=== PATIENT | male | born 1960 | race Caucasian/White ===

== ENCOUNTER 2016-05-24 23:41 | Emergency (ER) | payer BC ==
[2016-05-24 23:58] LABS: URINE APPEARANCE CLEAR; URINE BILIRUBIN NEGATIVE (NEGATIVE); URINE BLOOD TRACE-I (NEGATIVE); URINE COLOR YELLOW; URINE GLUCOSE (UA) NEGATIVE (NEGATIVE); URINE KETONE NEGATIVE (NEGATIVE); URINE LEUKOCYTE ESTERASE NEGATIVE (NEGATIVE); URINE NITRITE NEGATIVE (NEGATIVE); URINE PROTEIN NEGATIVE (NEGATIVE); URINE UROBILINOGEN 0.2 E.U./dL (0.20 - 1.00)
[2016-05-25] MEDS ORDERED: ONDANSETRON HCL IV 4 MG/2 ML VIAL IVP ONE (00:01)
[2016-05-25] MEDS ORDERED: KETOROLAC 30 MG/ML VIAL IVP ONE (00:01)
[2016-05-25 00:09] LABS: HEMATOCRIT 43.7 % (42.0-52.0); MEAN CELL VOLUME 86.5 fl (81-97); MEAN CORPUSCULAR HEMOGLOBIN 29.7 pg (27-33); MEAN CORPUSCULAR HGB CONC 34.3 g/dl (32-36); MEAN PLATELET VOLUME 10.3 fl (7.4-10.4); PLATELET COUNT 260 K/uL (130-400); RED BLOOD COUNT 5.05 M/uL (4.40-5.70); RED CELL DISTRIBUTION WIDTH 12.9 % (11.5-14.5); WHITE BLOOD COUNT W/O DIFF 9.6 K/uL (4.2-12.2)
--- NOTE | 2016-05-25 00:10 | Emergency Department Record ---
History of Present Illness - General Chief complaint: Flank Pain Stated complaint: KIDNEY STONE Time Seen by Provider: 05/24/16 23:48 Source: Patient Mode of Arrival: Ambulatory Limitations: No limitations - History of Present Illness Initial comments: 55 yo male presents to ED with a 3-hour history of left sided flank pain. Patient reports a history of kidney stones, although has not experienced one in several years. Patient denies fevers, chills, or dysuria symptoms. Patient does report nausea and vomiting x 1. Patient denies health problems other than HTN. MD Complaint: Other (flank pain) Onset/Timin -: Hour(s) Location: Left flank Radiation: None Severity scale (1-10): 5 Quality: Aching Consistency: Constant Improves with: None Worsens with: None Reports: Nausea/vomiting - Related Data Home Medications Medication Instructions Recorded Confirmed Last Taken Amlodipine/Valsartan/Hcthiazid 1 tab PO DAILY 05/24/16 05/24/16 05/24/16 [Xukgc-Cxswe-Iubz 10-320-25 mg] Omeprazole/Sodium Bicarbonate 1 cap PO DAILY 05/24/16 05/24/16 05/24/16 [Omeprazole-Bicarb 40-1,100 Cap] Previous Rx's Medication Instructions Recorded Hydrocodone/Acetaminophen [Erhard 1 tab PO Q6H PRN #10 tab 05/25/16 5mg/325mg] Tamsulosin HCl [Flomax] 0.4 mg PO DAILY #15 cap.er.24h 05/25/16 Allergies Allergy/AdvReac Type Severity Reaction Status Date / Time No Known Drug Allergies Allergy Verified 05/25/14 17:50 Travel Screening - Travel/Exposure Within Last 30 Days Have you traveled within the last 30 days?: No - Travel Symptoms Symptom Screening: None Review of Systems Constitutional: Denies: Chills, Fever, Malaise, Night sweats Eyes: Denies: Eye discharge, Eye pain ENT: Denies: Congestion, Ear pain Respiratory: Denies: Cough, Dyspnea Cardiovascular: Denies: Chest pain, Dyspnea on exertion Endocrine: Denies: Fatigue, Heat or cold intolerance Gastrointestinal: Reports: Nausea, Vomiting. Denies: Abdominal pain Genitourinary: Denies: Incontinence, Retention, Testicular pain Musculoskeletal: Reports: Back pain. Denies: Arthralgia, Gout, Joint swelling Skin: Denies: Bruising, Change in color, Change in hair/nails Neurological: Denies: Abnormal gait, Confusion, Headache, Seizure Psychiatric: Denies: Anxiety Hematological/Lymphatic: Denies: Anemia, Blood Clots Past Medical History - SOCIAL HISTORY Smoking Status: Never smoker - RESPIRATORY Hx Respiratory Disorders: No - CARDIOVASCULAR Hx Cardio Disorders: Yes Hx Hypertension: Yes - NEURO Hx Neuro Disorders: No - GI Hx GI Disorders: Yes Hx Reflux: Yes - Hx Genitourinary Disorders: Yes Hx Kidney Stones: Yes - ENDOCRINE Hx Endocrine Disorders: No - MUSCULOSKELETAL Hx Musculoskeletal Disorders: No - PSYCH Hx Psych Problems: No - HEMATOLOGY/ONCOLOGY Hx Hematology/Oncology Disorders: No Family Medical History Any Significant Family History?: Yes Hx Cancer: Father, Mother Hx Heart Disease: Father Physical Exam - General General Appearance: Alert, Oriented x3, Cooperative, Moderate distress Limitations: No limitations - Head Head exam: Atraumatic, Normocephalic, Normal inspection Head exam detail: negative: Abrasion, Contusion, Cota's sign, General tenderness, Hematoma, Laceration - Eye Eye exam: Normal appearance. negative: Conjunctival injection, Periorbital swelling, Periorbital tenderness, Scleral icterus - ENT Ear exam: negative: Auricular hematoma, Auricular trauma Nasal Exam: negative: Active bleeding, Discharge, Dried blood, Foreign body Mouth exam: negative: Drooling, Laceration, Muffled voice, Tongue elevation - Neck Neck exam: Normal inspection. negative: Meningismus, Tenderness - Respiratory Respiratory exam: Normal lung sounds bilaterally. negative: Rales, Respiratory distress, Rhonchi, Stridor - Cardiovascular Cardiovascular Exam: Regular rate, Normal rhythm, Normal heart sounds - GI/Abdominal GI/Abdominal exam: Soft. negative: Rebound, Rigid, Tenderness - Rectal Rectal exam: Deferred - exam: Deferred - Extremities Extremities exam: Normal inspection. negative: Calf tenderness, Pedal edema, Tenderness - Back Back exam: Reports: CVA tenderness (L). Denies: CVA tenderness (R) - Neurological Neurological exam: Alert, Normal gait, Oriented X3 - Psychiatric Psychiatric exam: Normal affect, Normal mood - Skin Skin exam: Normal color. negative: Abrasion Type of lesion: negative: abrasion Course Vital Signs 05/24/16 23:46 Temperature 97.5 F L Pulse Rate 88 Respiratory 20 Rate Blood Pressure 148/92 Pulse Ox 94 L - Reevaluation(s) Reevaluation #1: 05/25/16 00:31 Labs reviewed, BUN 21, Creatinine 1.3, Trace blood urine. Labs are otherwise grossly unremarkable for an acute process. CT Abdomen and Pelvis: 4 mm calculus left UVJ, no significant hydronephrosis. Reevaluation #2: 05/25/16 00:44 Patient updated on all results, reports that he is feeling much better and appears stable for discharge at this time. Will have the patient f/u with Dr. Flores in the [facility] clinic on Wednesday. Medical Decision Making - Lab Data Result diagrams: 05/25/16 00:00 05/25/16 00:00 Lab Results 05/24/16 Range/Units 23:48 Urine Color Yellow Urine Appearance Clear Urine pH 6.0 (5.0-8.0) Ur Specific Byron 1.025 (1.002-1.030) Urine Protein Negative (NEGATIVE) Urine Glucose (UA) Negative (NEGATIVE) Urine Ketones Negative (NEGATIVE) Urine Blood Trace-i (NEGATIVE) Urine Nitrite Negative (NEGATIVE) Urine Bilirubin Negative (NEGATIVE) Urine Urobilinogen 0.2 (0.20 - 1.00) E.U./dL Ur Leukocyte Esterase Negative (NEGATIVE) Disposition Disposition: Discharge Clinical Impression: Kidney stone on left side Disposition: Home, Self-Care Condition: (2) Stable Instructions: Flank Pain (ED) Additional Instructions: Return to ED if your symptoms worsen or if you have any concerns. Flomax and Erhard as directed. Follow-up with Dr. Flores in 2 days as directed. Prescriptions: Tamsulosin HCl [Flomax] 0.4 mg PO DAILY #15 cap.er.24h Hydrocodone/Acetaminophen [Erhard 5mg/325mg] 1 tab PO Q6H PRN #10 tab PRN Reason: Pain - General Referrals: PREETI THAO M.D. [MEDICAL DOCTOR] - [facility] Special[facility] [Provider Group] Forms: Patient Portal Access Time of Disposition: 00:16
[2016-05-25 00:12] LABS: URINE BACTERIA NONE SEEN; URINE EPITHELIAL CELLS 0 - 2 (FEW); URINE RBC 0 - 2 (NONE SEEN); URINE WBC 0 - 2 (0-2/hpf)
[2016-05-25] MEDS ORDERED: 0.9 % SODIUM CHLORIDE 1000ML 1,000 ML IV ONE (00:18)
[2016-05-25 00:21] LABS: ALB/GLOB RATIO 1.4 (1.1-1.8); ALBUMIN 4.6 gm/dL (3.5-5.0); ALKALINE PHOSPHATASE 131 U/L (38-126); ALT/SGPT 61 U/L (21-72); ANION GAP 12.4 (7-16); AST/SGOT 40 U/L (17-59); BILIRUBIN,TOTAL 0.53 mg/dL (0.2-1.3); BLOOD UREA NITROGEN 21 mg/dL (9-20); CARBON DIOXIDE 24.6 mmol/L (22-30); CREATININE 1.3 mg/dL (0.66-1.25); EST GLOMERULAR FILTRATION RATE > 60 ml/min; GLUCOSE,RANDOM 193 mg/dL (70-110); TOTAL PROTEIN 7.9 gm/dL (6.3-8.2)
== END 2016-05-25 01:01 | disposition home or self-care (01) ==
LOC: ER 23:41
DX: N20.1 Calculus of ureter (principal); R11.2 Nausea with vomiting, unspecified; I10 Essential (primary) hypertension; Z87.442 Personal history of urinary calculi
CPT/HCPCS: 74176; 80053; 81001; 85027; 96361; 96374; 96375; 99284; J1885; J2405; J7030

== ENCOUNTER 2016-07-03 10:18 | Emergency (ER) | payer BC, OTHER ==
--- NOTE | 2016-07-03 11:01 | Emergency Department Record ---
History of Present Illness - General Chief Complaint: Ankle/Foot Injury Stated Complaint: LEFT ANKLE INJ Time Seen by Provider: 07/03/16 10:49 Mode of Arrival: Ambulatory - History of Present Illness Initial Comments: fell 3 feet through a bleacher with an injury of the left ankle and left foot. No other injuries Onset/Timin -: Hour(s) Type of Injury: Other Place: Work Severity: Severe Severity scale (1-10): 8 Improves With: Nothing Worsens With: Weight bearing Context: Other Associated Symptoms: Swelling, Able to partially bear weight - Related Data Home Medications Medication Instructions Recorded Confirmed Last Taken Amlodipine/Valsartan/Hcthiazid 1 tab PO DAILY 05/24/16 07/03/16 07/03/16 [Askwu-Xisga-Elja 10-320-25 mg] Omeprazole/Sodium Bicarbonate 1 cap PO DAILY 05/24/16 07/03/16 07/03/16 [Omeprazole-Bicarb 40-1,100 Cap] Previous Rx's Medication Instructions Recorded Hydrocodone/Acetaminophen [[place] 1 each PO Q6HR #10 tablet 07/03/16 5-325 Tablet] Ibuprofen [Motrin 600Mg] 600 mg PO Q6H #30 tablet 07/03/16 Allergies Allergy/AdvReac Type Severity Reaction Status Date / Time No Known Drug Allergies Allergy Verified 05/25/14 17:50 Travel Screening - Travel/Exposure Within Last 30 Days Have you traveled within the last 30 days?: No - Travel/Exposure Within Last Year Have you traveled outside the [place] in the last year?: No - Additonal Travel Details Have you been exposed to anyone with a communicable illness?: No - Travel Symptoms Symptom Screening: None Review of Systems Reviewed: No additional complaints except as noted below Constitutional: Reports: As per HPI. Denies: Chills, Fever, Malaise, Night sweats, Weakness, Weight change Eyes: Reports: As per HPI. Denies: Eye discharge, Eye pain, Photophobia, Vision change ENT: Reports: As per HPI. Denies: Congestion, Dental pain, Ear pain, Epistaxis , Hearing loss, Throat pain Respiratory: Reports: As per HPI. Denies: Cough, Dyspnea, Hemoptysis, Stridor, Wheezes Cardiovascular: Reports: As per HPI. Denies: Arrhythmia, Chest pain, Dyspnea on exertion, Edema, Murmurs, Orthopnea, Palpitations, Paroxysmal nocturnal dyspnea, Rheumatic Fever, Syncope Endocrine: Reports: As per HPI. Denies: Fatigue, Heat or cold intolerance, Polydipsia, Polyuria Gastrointestinal: Reports: As per HPI. Denies: Abdominal pain, Constipation, Diarrhea, Hematemesis, Hematochezia, Melena, Nausea, Vomiting Genitourinary: Reports: As per HPI. Denies: Dysuria, Frequency, Hematuria, Incontinence, Retention, Testicular pain, Testicular mass, Urgency Musculoskeletal: Reports: As per HPI, Other (swollen and pain in the lateral ankle and foot.). Denies: Arthralgia, Back pain, Gout, Joint swelling, Myalgia , Neck pain Skin: Reports: As per HPI. Denies: Bruising, Change in color, Change in hair/ nails, Lesions, Pruritus, Rash Neurological: Reports: As per HPI. Denies: Abnormal gait, Confusion, Headache, Numbness, Paresthesias, Seizure, Tingling, Tremors, Vertigo, Weakness Psychiatric: Reports: As per HPI. Denies: Anxiety, Auditory hallucinations, Depression, Homicidal thoughts, Suicidal thoughts, Visual hallucinations Hematological/Lymphatic: Reports: As per HPI. Denies: Anemia, Blood Clots, Easy bleeding, Easy bruising, Swollen glands Past Medical History - SOCIAL HISTORY Smoking Status: Never smoker Alcohol Use: Occassional Drug Use: None - RESPIRATORY Hx Respiratory Disorders: No - CARDIOVASCULAR Hx Cardio Disorders: Yes Hx Hypertension: Yes - NEURO Hx Neuro Disorders: No - GI Hx GI Disorders: Yes Hx Reflux: Yes - Hx Genitourinary Disorders: Yes Hx Kidney Stones: Yes - ENDOCRINE Hx Endocrine Disorders: No - MUSCULOSKELETAL Hx Musculoskeletal Disorders: No - PSYCH Hx Psych Problems: No - HEMATOLOGY/ONCOLOGY Hx Hematology/Oncology Disorders: No Family Medical History Any Significant Family History?: Yes Hx Cancer: Father, Mother Hx Heart Disease: Father Physical Exam - General General Appearance: Alert, Oriented x3, Cooperative, No acute distress - Head Head exam: Normal inspection - Eye Eye exam: Normal appearance, PERRL Pupils: Normal accommodation - ENT ENT exam: Normal exam, Mucous membranes moist, Normal external ear exam, Normal orophraynx, TM's normal bilaterally Ear exam: Normal external inspection. negative: External canal tenderness Nasal Exam: Normal inspection. negative: Discharge, Sinus tenderness Mouth exam: Normal external inspection, Tongue normal Teeth exam: Normal inspection. negative: Dental caries Throat exam: Normal inspection. negative: Tonsillar erythema, Tonsillar exudate - Neck Neck exam: Normal inspection, Full ROM. negative: Tenderness - Respiratory Respiratory exam: Normal lung sounds bilaterally. negative: Respiratory distress - Cardiovascular Cardiovascular Exam: Regular rate, Normal rhythm, Normal heart sounds - GI/Abdominal GI/Abdominal exam: Soft, Normal bowel sounds. negative: Tenderness - Rectal Rectal exam: Deferred - exam: Deferred - Extremities Extremities exam: Normal inspection, Full ROM, Normal capillary refill, Tenderness (left ankle pain, neurovascular intact.) - Back Back exam: Reports: Normal inspection, Full ROM. Denies: Muscle spasm, Rash noted, Tenderness - Neurological Neurological exam: Alert, Normal gait, Oriented X3, Reflexes normal - Psychiatric Psychiatric exam: Normal affect, Normal mood - Skin Skin exam: Dry, Intact, Normal color, Warm Course Vital Signs 07/03/16 10:22 Temperature 98 F Pulse Rate 87 Respiratory 16 Rate Blood Pressure 141/94 Pulse Ox 97 Medical Decision Making - Data Complexity MDM Data: X-Ray Ordered and/or Reviewed (neg foot and ankle fracture) Disposition Clinical Impression: Ankle sprain Qualifiers: Encounter type: initial encounter Involved ligament of ankle: tibiofibular ligament Laterality: left Qualified Code(s): S93.432A - Sprain of tibiofibular ligament of left ankle, initial encounter Disposition: Home, Self-Care Condition: (1) Good Instructions: Ankle Sprain (ED) Additional Instructions: follow up with Dr. lucero in 4 days. crutches Prescriptions: Hydrocodone/Acetaminophen [Aledo 5-325 Tablet] 1 each PO Q6HR #10 tablet Ibuprofen [Motrin 600Mg] 600 mg PO Q6H #30 tablet Forms: Patient Portal Access Time of Disposition: 12:19
--- NOTE | 2016-07-08 16:29 | RADIOLOGY REPORT ---
EXAM: ANKLE LEFT 3 VIEWS HISTORY: PATIENT FELL WITH LATERAL ANKLE PAIN ON THE LEFT. TECHNIQUE: Three views, left ankle. COMPARISON: No prior left ankle series. ENCOUNTER: Initial. FINDINGS: There is mild soft tissue swelling particularly medially. There is a faint small calcific density about 3.6 mm in size adjacent to the medial malleolus. This appears smoothly marginated and is likely a chronic density, either developmental or due to old injury but does not appear acute. Allowing for this, no definite acute fracture of the left ankle seen and no dislocation evident. IMPRESSION: 1. MILD SOFT TISSUE SWELLING. 2. SMALL CHRONIC-APPEARING CALCIFIC DENSITY ADJACENT TO THE MEDIAL MALLEOLUS. NO DEFINITE ACUTE FRACTURE OF THE LEFT ANKLE IDENTIFIED. JOB NUMBER: [id number] MTDD
--- NOTE | 2016-07-08 16:32 | RADIOLOGY REPORT ---
EXAM: FOOT, LEFT 3 VIEWS HISTORY: PATIENT FELL WITH LEFT LATERAL FOOT PAIN. TECHNIQUE: Three views, left foot. COMPARISON: No prior left foot series. ENCOUNTER: Initial. FINDINGS: Mild degenerative change at the first MTP joint. There is slight flattening at the head of the second metatarsal, which appears chronic in nature. No definite acute fracture of the left foot identified and no dislocation apparent. Very small posterior calcaneal spur. IMPRESSION: 1. DEGENERATIVE ARTHRITIS AT THE FIRST MTP JOINT. 2. MILD FLATTENING AT THE HEAD OF THE SECOND METATARSAL APPEARS CHRONIC. 3. SMALL POSTERIOR CALCANEAL SPUR. 4. NO DEFINITE ACUTE FRACTURE OF THE LEFT FOOT IDENTIFIED. JOB NUMBER: [id number] MTDD
== END 2016-07-03 12:42 | disposition home or self-care (01) ==
LOC: ER 10:18
DX: S93.432A Sprain of tibiofibular ligament of left ankle, initial encounter (principal); W17.89XA Other fall from one level to another, initial encounter; Y92.39 Other specified sports and athletic area as the place of occurrence of the external cause; Y99.0 Civilian activity done for income or pay
CPT/HCPCS: 99283; 99284

== ENCOUNTER 2016-09-05 13:32 | Emergency (ER) | payer BC, OTHER ==
--- NOTE | 2016-09-05 15:23 | Emergency Department Record ---
History of Present Illness - General Chief complaint: ENT Stated complaint: LT EAR PAIN/LT JAW SWELLING Time Seen by Provider: 09/05/16 15:17 Source: Patient Mode of Arrival: Ambulatory - History of Present Illness Initial comments: 3 days of ear pain. He has been swimming in his backyard pool. No f,c,cough, sob , cp, or other problems. MD complaint: Ear pain Onset/Timin -: Days(s) Location: L ear Severity scale (1-10): 6 Quality: Aching, Sharp, Stabbing Consistency: Intermittent Improves with: None Worsens with: None - Related Data Home Medications Medication Instructions Recorded Confirmed Last Taken Amlodipine/Valsartan/Hcthiazid 1 tab PO DAILY 05/24/16 07/03/16 07/03/16 [Bjxws-Cncfp-Pilx 10-320-25 mg] Omeprazole/Sodium Bicarbonate 1 cap PO DAILY 05/24/16 07/03/16 07/03/16 [Omeprazole-Bicarb 40-1,100 Cap] Previous Rx's Medication Instructions Recorded Hydrocodone/Acetaminophen [[place] 1 each PO Q6HR #10 tablet 07/03/16 5-325 Tablet] Ibuprofen [Motrin 600Mg] 600 mg PO Q6H #30 tablet 07/03/16 Neomycin/Polymyxin B Sulf/Hc 4 drop AFFEAR QID #10 ml 09/05/16 [Cortisporin Otic] Allergies Allergy/AdvReac Type Severity Reaction Status Date / Time No Known Drug Allergies Allergy Verified 05/25/14 17:50 Travel Screening - Travel/Exposure Within Last 30 Days Have you traveled within the last 30 days?: No - Travel/Exposure Within Last Year Have you traveled outside the [place] in the last year?: No - Additonal Travel Details Have you been exposed to anyone with a communicable illness?: No - Travel Symptoms Symptom Screening: None Review of Systems Reviewed: No additional complaints except as noted below Constitutional: Reports: As per HPI. Denies: Chills, Fever, Malaise, Night sweats, Weakness, Weight change Eyes: Reports: As per HPI. Denies: Eye discharge, Eye pain, Photophobia, Vision change ENT: Reports: As per HPI. Denies: Congestion, Dental pain, Ear pain, Epistaxis , Hearing loss, Throat pain Respiratory: Reports: As per HPI. Denies: Cough, Dyspnea, Hemoptysis, Stridor, Wheezes Cardiovascular: Reports: As per HPI. Denies: Arrhythmia, Chest pain, Dyspnea on exertion, Edema, Murmurs, Orthopnea, Palpitations, Paroxysmal nocturnal dyspnea, Rheumatic Fever, Syncope Endocrine: Reports: As per HPI. Denies: Fatigue, Heat or cold intolerance, Polydipsia, Polyuria Gastrointestinal: Reports: As per HPI. Denies: Abdominal pain, Constipation, Diarrhea, Hematemesis, Hematochezia, Melena, Nausea, Vomiting Genitourinary: Reports: As per HPI. Denies: Dysuria, Frequency, Hematuria, Incontinence, Retention, Testicular pain, Testicular mass, Urgency Musculoskeletal: Reports: As per HPI. Denies: Arthralgia, Back pain, Gout, Joint swelling, Myalgia, Neck pain Skin: Reports: As per HPI. Denies: Bruising, Change in color, Change in hair/ nails, Lesions, Pruritus, Rash Neurological: Reports: As per HPI. Denies: Abnormal gait, Confusion, Headache, Numbness, Paresthesias, Seizure, Tingling, Tremors, Vertigo, Weakness Psychiatric: Reports: As per HPI. Denies: Anxiety, Auditory hallucinations, Depression, Homicidal thoughts, Suicidal thoughts, Visual hallucinations Hematological/Lymphatic: Reports: As per HPI. Denies: Anemia, Blood Clots, Easy bleeding, Easy bruising, Swollen glands Past Medical History - SOCIAL HISTORY Smoking Status: Never smoker Alcohol Use: Occasional Drug Use: None - RESPIRATORY Hx Respiratory Disorders: No - CARDIOVASCULAR Hx Cardio Disorders: Yes Hx Hypertension: Yes - NEURO Hx Neuro Disorders: No - GI Hx GI Disorders: Yes Hx Reflux: Yes - Hx Genitourinary Disorders: Yes Hx Kidney Stones: Yes - ENDOCRINE Hx Endocrine Disorders: No - MUSCULOSKELETAL Hx Musculoskeletal Disorders: No - PSYCH Hx Psych Problems: No - HEMATOLOGY/ONCOLOGY Hx Hematology/Oncology Disorders: No Family Medical History Any Significant Family History?: Yes Hx Cancer: Father, Mother Hx Heart Disease: Father Physical Exam - General General Appearance: Alert, Oriented x3, Cooperative, No acute distress - Head Head exam: Normal inspection - Eye Eye exam: Normal appearance, PERRL Pupils: Normal accommodation - ENT ENT exam: Normal exam, Mucous membranes moist, Normal external ear exam, Normal orophraynx, TM's normal bilaterally, Other (external canal inflamed with debris , tender with tug to pinna.) Ear exam: Normal external inspection. negative: External canal tenderness Nasal Exam: Normal inspection. negative: Discharge, Sinus tenderness Mouth exam: Normal external inspection, Tongue normal Teeth exam: Normal inspection. negative: Dental caries Throat exam: Normal inspection. negative: Tonsillar erythema, Tonsillar exudate - Neck Neck exam: Normal inspection, Full ROM. negative: Lymphadenopathy, Meningismus , Tenderness - Respiratory Respiratory exam: Normal lung sounds bilaterally. negative: Respiratory distress - Cardiovascular Cardiovascular Exam: Regular rate, Normal rhythm, Normal heart sounds - GI/Abdominal GI/Abdominal exam: Soft, Normal bowel sounds. negative: Tenderness - Rectal Rectal exam: Deferred - exam: Deferred - Extremities Extremities exam: Normal inspection, Full ROM, Normal capillary refill. negative: Tenderness - Back Back exam: Reports: Normal inspection, Full ROM. Denies: Muscle spasm, Rash noted, Tenderness - Neurological Neurological exam: Alert, Normal gait, Oriented X3, Reflexes normal - Psychiatric Psychiatric exam: Normal affect, Normal mood - Skin Skin exam: Dry, Intact, Normal color, Warm Course Vital Signs 09/05/16 15:04 Temperature 98.5 F Pulse Rate 79 Respiratory 18 Rate Blood Pressure 109/78 Pulse Ox 97 Medical Decision Making - Management Options MDM Management: No Additional Work-up Planned Disposition Disposition: Discharge Clinical Impression: Otitis externa of left ear Qualifiers: Otitis externa type: swimmer's ear Chronicity: acute Qualified Code(s): H60.332 - Swimmer's ear, left ear Disposition: Home, Self-Care Condition: (1) Good Instructions: Otitis Externa (ED) Additional Instructions: Cortisporin otic suspension. Fill canal 4 times daily. May use cotton if helpful. tylenol or ibuprofen as directed as needed for pain. No swimming or water in ear until symptoms resolved. Recheck with PCP as needed. Prescriptions: Neomycin/Polymyxin B Sulf/Hc [Cortisporin Otic] 4 drop AFFEAR QID #10 ml Forms: Patient Portal Access Quality - Quality Measures Quality Measures: N/A - Blood Pressure Screening View Details: Yes Blood Pressure Classification: Normal BP Reading Systolic Measurement: 109 Diastolic Measurement: 78 Screening for High Blood Pressure: < Normal BP, F/U Not Required > [G8783] Normal BP Follow-up Interventions: No follow-up required
== END 2016-09-05 15:45 | disposition home or self-care (01) ==
LOC: ER 13:32
DX: H60.332 Swimmer's ear, left ear (principal)
CPT/HCPCS: 99282

== ENCOUNTER 2017-12-06 10:30 | Day surgery (SDC) | payer BC ==
[2017-12-06] MEDS ORDERED: LIDOCAINE 2% MDV (20MG/ML) 20ML VIAL IV ONE (10:31)
[2017-12-06] MEDS ORDERED: PROPOFOL 10 MG/ML VIAL IV ONE (10:31)
[2017-12-06] MEDS ORDERED: MIDAZOLAM HCL 2MG/2ML VIAL IV ONE (10:31)
--- NOTE | 2017-12-08 10:50 | Operative Note ---
DATE OF SURGERY: 12/06/2017 Surgeon: Duncan Olsen DO Referring physician: Jasper Goodman DO OPERATION: 1. COLONOSCOPY TO THE CECUM WITH COLD SNARE POLYPECTOMY x1. 2. COLD BIOPSY FORCEP POLYPECTOMY X1. INDICATION: Prior history of adenomatous polyps. The patient returns at this time after 5 years for surveillance. He denies any current GI issues. Anesthesia: Intravenous sedation was administered by the Department of Anesthesiology and included Diprivan titrated to effect. PROCEDURE: Following informed consent from this alert individual, including a discussion of the risks and benefits of the procedure and opportunity for the patient to ask questions, the patient was in the left lateral decubitus position. Digital rectal examination was performed. No abnormalities were noted. Following this, the Olympus PCF 180 video colonoscope was inserted in the rectum without resistance. The rectal mucosa had a normal appearance with normal folds and distensibility. The colonoscope was advanced up through the bowel to the level of the cecum without much difficulty. Throughout the bowel the mucosa appeared normal, folds were normal. The bowel was filled with distensible. The cecum was defined by noting the appendiceal orifice and the ileocecal valve. At the base of the cecum, there was a diminutive polyp noted, measuring 3 mm in size. It was removed with cold biopsy forceps. There was a second polyp in the ascending colon noted measuring approximately 5 mm in size, which was removed with cold snare polypectomy. No other polyps were noted. There was a diverticulum seen in the sigmoid colon. Retroflexion in the rectum was endoscopically unremarkable. The endoscope was straightened and removed. The patient tolerated the procedure well and was returned to the recovery area in stable condition. IMPRESSION: 1. A 3 mm cecal polyp removed with biopsy forceps. 2. A 5 mm ascending colon polyp removed with cold snare polypectomy. 3. Sigmoid diverticulosis. RECOMMENDATIONS: The patient was advised that he should receive a copy of his pathology report at home in the next 2 to 3 weeks, if not he is asked to come to my office to review the results of testing today. Further recommendations forthcoming pending those results. Followup will also be with Dr. Jasper Goodman. As always, thank you for allowing me to participate in the care of your patient. CC: Dr. Jasper Olsen DO [facility]
== END 2017-12-06 13:10 | disposition home or self-care (01) ==
LOC: HOP 10:30
PROVIDERS: ATTEND Internal Medicine Gastroenterology
DX: Z12.11 Encounter for screening for malignant neoplasm of colon (principal); Z86.010 Personal history of colon polyps; D12.0 Benign neoplasm of cecum; D12.2 Benign neoplasm of ascending colon; K57.30 Diverticulosis of large intestine without perforation or abscess without bleeding; I10 Essential (primary) hypertension; E03.9 Hypothyroidism, unspecified